=== PATIENT | male | born 1950 | race Caucasian/White ===

== ENCOUNTER 2017-08-19 15:10 | Emergency (ER) | payer OTHER, BC ==
[~2017-08-19] VITALS: Ht 182.9 cm; Wt 75.9 kg
[~2017-08-19 15:10] MED LIST: ALLEGRA ALLERG180 MG PO; ARTHROTEC 751 TABLET PO; ASPIR 8181 M1 PO; EFFIENT10 MG PO; PLAVIX75 MG PO; SIMVASTATIN40 MG PO
[2017-08-19 17:35] VITALS: BP 128/74
== END 2017-08-19 17:39 | disposition home or self-care (01) ==
LOC: EME 15:10
DX: Z77.21 Contact with and (suspected) exposure to potentially hazardous body fluids (principal); Z57.8 Occupational exposure to other risk factors; I25.2 Old myocardial infarction; Z98.61 Coronary angioplasty status
CPT/HCPCS: 99281; 99283